=== PATIENT | male | born 1980 | race African-American/Black ===

== ENCOUNTER 2017-09-06 16:52 | Emergency (ER) | payer BC, OTHER ==
[2017-09-06 17:32] LABS: #Basophils 0.1 thou/uL (0.0-0.2); #Eosinphils 0.2 thou/uL (0.0-0.7); #Lymphocytes 2.4 thou/uL (1.20-3.40); #Monocytes 0.8 thou/uL (0.11-0.59); #Neutrophils 7.8 thou/uL (1.40-6.50); %Basophils 0.6 % (0.0-1.0); %Eosinophils 1.4 % (0.0-10.0); %Lymphocytes 21.5 % (21.0-51.0); %Monocytes 6.8 % (0.0-10.0); %Neutrophils 69.7 % (42.0-75.0); Hemoglobin 15.7 g/dL (14.0-18.0); Mean Corpuscular HGB CONC 34.9 g/dL (32.0-36.0); Mean Corpuscular Hemoglobin 31.7 pg (27.0-31.0); Mean Corpuscular Volume 90.7 fL (78.0-98.0); Mean Platelet Volume 7.3 fL (7.4-10.4); Platelet Count 346 thou/uL (130-400); RBC Distribution Width 11.8 % (11.5-14.5); Red Blood Cell (RBC) Count 4.96 mill/uL (4.70-6.10); White Blood Cell (WBC) Count 11.2 thou/uL (4.8-10.8)
[2017-09-06 17:55] LABS: ALT (SGPT) 17 U/L (8-55); AST (SGOT) 22 U/L (5-34); Albumin 4.4 g/dL (3.5-5.0); Alkaline Phosphatase 64 U/L (40-150); Anion Gap 11 mmol/L (10-20); BUN (Urea Nitrogen) 10 mg/dL (8.9-20.6); Bilirubin, Total 0.7 mg/dL (0.2-1.2); Calc. Creatinine Clearance 0 mL/min (70-130); Calcium 9.3 mg/dL (7.8-10.44); Carbon Dioxide 27 mmol/L (22-29); Chloride 104 mmol/L (98-107); Estimated GFR-MDRD 85; Globulin 3.7 g/dL (2.4-3.5); Glucose 110 mg/dL (70-105); Potassium 3.7 mmol/L (3.5-5.1); Protein, Total 8.1 g/dL (6.0-8.3); Sodium 138 mmol/L (136-145)
[2017-09-06 18:01] LABS: CKMB 1.3 ng/mL (0-6.6); Troponin I Less than 0.010 ng/mL (< 0.028)
[2017-09-06] MEDS ORDERED: Acetaminophen 325 MG TAB ONE (18:41)
--- NOTE | 2017-09-06 18:45 | RAD ---
RADIOGRAPH CHEST 1 VIEW: 09/05/17 HISTORY: 37-year-old male with sudden loss of consciousness and collapse. FINDINGS: There are no air space densities, pulmonary edema, pneumothorax, or cardiomegaly. The lateral costop hrenic angles are sharp. IMPRESSION: No acute cardiopulmonary findings. lucy [] POS: [facility]
--- NOTE | 2017-09-09 12:38 | EKG ---
Test Reason : Blood Pressure : / mmHG Vent. Rate : 115 BPM Atrial Rate : 115 BPM P-R Int : 162 ms QRS Dur : 094 ms QT Int : 324 ms P-R-T Axes : 038 056 020 degrees QTc Int : 448 ms Sinus tachycardia Possible Left atrial enlargement Borderline ECG Confirmed by MICA LOVING M.D. ([id number]), city editor CANDICE FAJARDO ([id number] on 09/09/2017 12:38:06 PM Referred By: Confirmed By:MICA LOVING M.D.
== END 2017-09-06 18:44 | disposition home or self-care (01) ==
LOC: ERS 16:52
DX: R55 Syncope and collapse (principal); I10 Essential (primary) hypertension; Z71.6 Tobacco abuse counseling; F17.210 Nicotine dependence, cigarettes, uncomplicated
CPT/HCPCS: 36415; 71045; 80053; 82553; 84484; 85025; 93005; 96360; 99406

== ENCOUNTER 2021-04-29 19:00 | Emergency (ER) | payer OTHER ==
[2021-04-29] MEDS ORDERED: Ketorolac Tromethamine 30 MG/ML VIAL ONE (20:18)
== END 2021-04-29 20:34 | disposition home or self-care (01) ==
LOC: ERS 19:00
DX: K04.7 Periapical abscess without sinus (principal); I10 Essential (primary) hypertension; F17.200 Nicotine dependence, unspecified, uncomplicated
CPT/HCPCS: 96372; 99282; J1885

== ENCOUNTER 2021-08-25 08:24 | Emergency (ER) | payer OTHER ==
[2021-08-25] MEDS ORDERED: Ondansetron PF 4 MG/2 ML Vial ONE (08:51)
[2021-08-25] MEDS ORDERED: Pantoprazole 40 MG VIAL ONE (08:51)
[2021-08-25 09:18] LABS: #Basophils 0.1 thou/uL (0.0-0.2); #Lymphocytes 2.2 thou/uL (1.20-3.40); #Neutrophils 9.8 thou/uL (1.40-6.50); %Basophils 0.5 % (0.0-1.0); %Eosinophils 0.2 % (0.0-10.0); %Lymphocytes 16.4 % (21.0-51.0); %Monocytes 7.9 % (0.0-10.0); Hemoglobin 16.9 g/dL (14.0-18.0); Mean Corpuscular HGB CONC 35.2 g/dL (32.0-36.0); Mean Corpuscular Hemoglobin 31.6 pg (27.0-31.0); Mean Corpuscular Volume 89.8 fL (78.0-98.0); Mean Platelet Volume 7.3 fL (7.4-10.4); Platelet Count 364 thou/uL (130-400); RBC Distribution Width 11.8 % (11.5-14.5); Red Blood Cell (RBC) Count 5.33 mill/uL (4.70-6.10); White Blood Cell (WBC) Count 13.1 thou/uL (4.8-10.8)
[2021-08-25 09:43] LABS: ALT (SGPT) 24 U/L (8-55); AST (SGOT) 22 U/L (5-34); Albumin 4.3 g/dL (3.5-5.0); Alkaline Phosphatase 73 U/L (40-110); Anion Gap 15 mmol/L (10-20); BUN (Urea Nitrogen) 14 mg/dL (8.9-20.6); Bilirubin, Total 1.6 mg/dL (0.2-1.2); Calc. Creatinine Clearance 0 mL/min (70-130); Calcium 9.4 mg/dL (7.8-10.44); Carbon Dioxide 24 mmol/L (22-29); Chloride 102 mmol/L (98-107); Globulin 4.1 g/dL (2.4-3.5); Glucose 108 mg/dL (70-105); Lipase 7 U/L (8-78); Potassium 3.4 mmol/L (3.5-5.1); Protein, Total 8.4 g/dL (6.0-8.3); Sodium 138 mmol/L (136-145)
== END 2021-08-25 12:11 | disposition home or self-care (01) ==
LOC: ERS 08:24
DX: R11.2 Nausea with vomiting, unspecified (principal); I10 Essential (primary) hypertension; R94.5 Abnormal results of liver function studies; F17.210 Nicotine dependence, cigarettes, uncomplicated
CPT/HCPCS: 80053; 83690; 85025; 93005; 96361; 96374; 96375; C9113; J2405

== ENCOUNTER 2025-01-11 06:54 | Emergency (ER) | payer SELFPAY ==
[2025-01-11] MEDS ORDERED: Ketorolac Tromethamine 30 MG (1 mL) VIAL ONE (07:38)
[2025-01-11] MEDS ORDERED: Ondansetron PF 4 MG/2 ML Vial ONE (07:38)
[2025-01-11 07:51] LABS: #Basophils Less than 0.03 10x3/uL (0.0-0.2); #Eosinophils 0.03 10x3/uL (0.0-0.7); #Monocytes 0.94 10x3/uL (0.11-0.59); #Neutrophils 10.57 10x3/uL (1.40-6.50); %Basophils 0.2 % (0.0-1.0); %Eosinophils 0.2 % (0.0-10.0); %Lymphocytes 13.0 % (21.0-51.0); %Monocytes 7.1 % (0.0-10.0); %Neutrophils 79.2 % (42.0-75.0); Hematocrit 46.2 % (42.0-52.0); Hemoglobin 15.7 g/dL (14.0-18.0); Mean Corpuscular Hemoglobin 29.3 pg (27.0-31.0); Mean Corpuscular Volume 86.2 fL (78.0-98.0); Platelet Count 425 10x3/uL (130-400); Red Blood Cell (RBC) Count 5.36 mill/uL (4.70-6.10); White Blood Cell (WBC) Count 13.33 10x3/uL (4.8-10.8)
[2025-01-11 08:06] LABS: ALT (SGPT) 18 U/L (Less than 45); AST (SGOT) 27 U/L (11-34); Albumin 3.7 g/dL (3.1-4.5); Alkaline Phosphatase 61 U/L (40-110); Anion Gap 16 mmol/L (10-20); BUN (Urea Nitrogen) 9 mg/dL (8.9-20.6); Bilirubin, Total 1.4 mg/dL (0.3-1.2); Calc. Creatinine Clearance 0 mL/min (70-130); Calcium 9.0 mg/dL (7.8-10.44); Carbon Dioxide 26 mmol/L (22-29); Chloride 104 mmol/L (98-107); Globulin 3.1 g/dL (2.4-3.5); Glucose 110 mg/dL (70-105); Lipase 8 U/L (8-78); Potassium 4.0 mmol/L (3.5-5.1); Sodium 142 mmol/L (136-145)
[2025-01-11] MEDS ORDERED: Lidocaine Viscous Sol 2% 15 ml UD Cup ONE (09:05)
[2025-01-11] MEDS ORDERED: Mag-Al 1200 mg/1200 mg/30 ML UDCUP ONE (09:05)
[2025-01-11 09:25] LABS: Bacteria/HPF None Seen HPF (None Seen); CAUTI Indications for Culture Dysuria,urgency,freq; Glucose, Urine (Dipstick) Normal (Negative); Leukocyte Negative Leu/uL (Negative); Protein, Urine (Dipstick) 20 mg/dL (Neg-Trace); Specific Gravity, Urine 1.048 (1.002-1.036); WBC/HPF 0-3 HPF (0-3)
[2025-01-11 09:30] LABS: Urine Culture Reflex No No
[2025-01-11] MEDS ORDERED: Iopamidol 370 76% 100 ML VIAL ONE (12:20)
== END 2025-01-11 09:50 | disposition home or self-care (01) ==
LOC: ERS 06:54
DX: K27.9 Peptic ulcer, site unspecified, unspecified as acute or chronic, without hemorrhage or perforation (principal); R11.2 Nausea with vomiting, unspecified; I10 Essential (primary) hypertension; F17.210 Nicotine dependence, cigarettes, uncomplicated
CPT/HCPCS: 74177; 80053; 81001; 83605; 83690; 85025; 96361; 96374; 96375; J1885; J2270; J2405

== ENCOUNTER 2025-01-31 18:42 | Emergency (ER) | payer SELFPAY ==
[2025-01-31 19:04] LABS: #Basophils 0.03 10x3/uL (0.0-0.2); #Eosinophils 0.29 10x3/uL (0.0-0.7); #Monocytes 1.25 10x3/uL (0.11-0.59); #Neutrophils 7.98 10x3/uL (1.40-6.50); %Basophils 0.2 % (0.0-1.0); %Eosinophils 1.9 % (0.0-10.0); %Lymphocytes 35.5 % (21.0-51.0); %Monocytes 8.4 % (0.0-10.0); %Neutrophils 53.7 % (42.0-75.0); Hematocrit 48.9 % (42.0-52.0); Hemoglobin 16.5 g/dL (14.0-18.0); Mean Corpuscular Hemoglobin 29.2 pg (27.0-31.0); Mean Corpuscular Volume 86.4 fL (78.0-98.0); Platelet Count 411 10x3/uL (130-400); Red Blood Cell (RBC) Count 5.66 mill/uL (4.70-6.10); White Blood Cell (WBC) Count 14.89 10x3/uL (4.8-10.8)
[2025-01-31 19:19] LABS: INR-International Normal Ratio 1.0; PTT 24.2 sec (22.9-36.1); Prothrombin Time 12.8 sec (12.0-14.7)
[2025-01-31 19:27] LABS: ALT (SGPT) 17 U/L (Less than 45); AST (SGOT) 20 U/L (11-34); Albumin 3.9 g/dL (3.1-4.5); Alkaline Phosphatase 69 U/L (40-110); Anion Gap 18 mmol/L (10-20); BUN (Urea Nitrogen) 12 mg/dL (8.9-20.6); Bilirubin, Total 0.5 mg/dL (0.3-1.2); Calc. Creatinine Clearance 0 mL/min (70-130); Calcium 9.4 mg/dL (7.8-10.44); Carbon Dioxide 23 mmol/L (22-29); Chloride 105 mmol/L (98-107); Globulin 3.6 g/dL (2.4-3.5); Glucose 112 mg/dL (70-105); Magnesium 1.9 mg/dL (1.6-2.6); Potassium 3.9 mmol/L (3.5-5.1); Sodium 142 mmol/L (136-145)
[2025-01-31 20:42] LABS: Cocaine Metabolite Screen Negative (Negative); THC/Cannabinoid Screen Negative (Negative); Tricyclic Screen Negative (Negative)
== END 2025-01-31 21:00 | disposition left against medical advice (07) ==
LOC: ERS 18:42
DX: I48.91 Unspecified atrial fibrillation (principal); R07.9 Chest pain, unspecified; I10 Essential (primary) hypertension; F17.210 Nicotine dependence, cigarettes, uncomplicated
CPT/HCPCS: 71045; 80053; 80306; 83735; 83880; 84443; 84484; 85025; 85610; 85730; 93005; 96365; 96366; 96376